=== PATIENT | male | born 2000 | race Caucasian/White ===

== ENCOUNTER 2022-07-30 21:10 | Emergency (ER) | payer OTHER, SELFPAY ==
[2022-07-30 21:17] VITALS: BP 167/93; PULSE 117; RESP 20; TEMP 36.8; O2SAT 99; BMI 23.3
[2022-07-30 22:15] LABS: IDNOW Serial# 6674DD1D; Strep A Nucleic Acid Negative (Negative)
[2022-07-30 22:18] LABS: COVID-19 Test Negative (Negative); IDNOW Serial# 55D5AD1C; IDNOW Serial# 9DB6401D; Influenza A Negative (Negative); Influenza B2 Negative (Negative)
--- NOTE | 2022-07-30 22:22 | ED_ITS ---
HPI - Ear Problem General Chief complaint: Ear Problems Stated complaint: headache,ear ache Time Seen by Provider: 07/30/22 22:21 Source: patient Mode of arrival: ambulatory Limitations: no limitations History of Present Illness HPI Narrative: 21-year-old male presents with left ear pain. States that his left ear was clogged, and use a Q-tip to unclog it, he also reports a headache, and sinus congestion. MD Complaint: ear pain Location: left ear Duration: constant Severity: severe Relieving factors: nothing Exacerbating factors: chewing and palpation Context: recent illness Discharge from ear: no Associated symptoms ear: fever, headache and rhinorrhea Treatment prior to arrival: attempt at ear wax removal Related Data Previous Rx's Medication Instructions Recorded amoxicillin 875 mg-potassium 1 tab PO Q12H 10 days #20 tabs 07/30/22 clavulanate 125 mg tablet loratadine 10 mg tablet 10 mg PO DAILY #30 tabs 07/30/22 Allergies Allergy/AdvReac Type Severity Reaction Status Date / Time No Known Allergies Allergy Verified 07/30/22 21:22 Review of Systems Review of Systems: Constitutional: No Fever, No Chills ENT/Mouth: Positive left Ear Pain, No Hoarseness, No sore throat, positive nasal congestion, positive sinus congestion Eyes: No Eye Pain, No Swelling, No Redness, No Foreign Body Cardiovascular: No Chest Pain, No SOB Respiratory: No Cough, No Dyspnea Gastrointestinal: No Nausea, No Vomiting, No Diarrhea, No abdominal Pain Musculoskeletal: None joint pain, No Myalgias, No Joint Swelling Skin: No Skin lacerations, No rash Neuro: No Weakness, No Numbness, No Dizziness, positive Headache Yes all other systems are reviewed and are negative [facility] Past Medical History Attestation statement: The following information was validated with the patient. Source: old records reviewed Social History Social History Advance Directives: No Physical Exam Vital Signs: Vital Signs: Last Vital Signs Temp 98.2 F 07/30/22 21:17 Pulse 117 H 07/30/22 21:17 Resp 20 07/30/22 21:17 BP 167/93 H 07/30/22 21:17 Pulse Ox 99 07/30/22 21:17 O2 Del Method 07/30/22 21:17 BMI result Body Mass Index 23.3 Appearance: Alert. Oriented X3. Mild distress. Eyes: Pupils equal, round and reactive to light. ENT: Pharynx normal. Left tympanic membrane perforated with diffuse erythema and inflammation, right tympanic membrane intact erythematous and bulging. Positive rhinorrhea. Positive maxillary sinus tenderness. Neck: Normal inspection. Neck supple. No mastoid tenderness. No nuchal rigidity. Full range of motion. CVS: Normal heart rate and rhythm. Pulses normal. Respiratory: No respiratory distress. Breath sounds normal. Abdomen: Soft and nontender. Skin: Skin warm and dry. Normal skin color. Normal skin turgor. Extremities: No lower extremity edema. Gait well-balanced well coordinated. Neuro: No motor deficit. No sensory deficit. Cranial nerves 2-12 intact. Course Course Course Narrative: 21-year-old male presents for left ear pain, and upper respiratory symptoms. Viral panel and strep are negative. Physical exam is indicative of sinusitis and congestion with rhinorrhea and a severe case of otitis media to left side. Right tympanic membrane is intact with erythema and bulging. No nuchal rigidity. No mastoid tenderness. No indication of or pharyngeal edema. 22:30 severe otitis media with suspected perforated tympanic membrane, plan of care is for Augmentin and decongestant to help with sinus congestion. Parent and patient understands that they must follow-up with ENT. I referred to ENT on [facility]. Patient verbalized understanding of and agrees plan of care discharge home. Verbalized understanding of signs symptoms indicating need for emergent intervention. Medications Administered Discontinued Medications Generic Name Dose Route Start Last Admin Trade Name Freq PRN Reason Stop Dose Admin Amoxicillin/Clavulanate Potassium 875 mg 07/30/22 22:36 07/30/22 22:51 Amoxicillin/Potassium Clav 875 Mg Tablet PO 07/30/22 22:37 875 mg ONCE ONE Administration Ibuprofen 600 mg 07/30/22 22:21 07/30/22 22:51 Ibuprofen 600 Mg Tablet PO 07/30/22 22:22 600 mg ONCE ONE Administration Medical Decision Making Differential Diagnosis Differential Diagnoses: The differential diagnosis associated with the presentation includes Otitis media, otitis externa, sinusitis, COVID, influenza, RSV Lab Data [facility] Lab Attestation statement: I reviewed the patient's lab results. Labs: Lab Results 07/30/22 07/30/22 07/30/22 Range/Units 21:48 21:48 21:48 COVID-19 (NEVAEH) Negative (Negative) COVID-19 Clin Com See Note Influenza Type A (IMANI) Negative (Negative) Influenza Type B (IMANI) Negative (Negative) Influenza A & B Note See Note S. pyogenes GrpA IMANI Negative (Negative) External Record Review External record reviewed: Outpatient record Discharge Plan Discharge Clinical Impression: Otitis media, Acute otitis media of left ear with perforated tympanic membrane, Acute viral syndrome Patient Disposition: Home, Self-Care Instructions: Ruptured Eardrum (ED), Ear Infection (ED), Viral Syndrome (ED) Additional Instructions: You were evaluated for your pain. You have a severe case of otitis media with a tympanic membrane perforation. ( severe ear infection with broken ear drum). Take Augmentin 875 mg twice a day for the next 10 days. Alternate Tylenol 650 mg every 6 hours and Motrin 600 mg every 6 hours as needed for pain and fever management. Consider taking these medications 3 hours apart so you have pain and fever management every 3 hours. Write down what time you take these medications to prevent accidental overdose. Last dose of Motrin at 23:00. Next dose of Motrin is due at 05:00. Consider taking Tylenol at 02:00 so you can have pain management every 3 hours. Follow-up with ENT. follow-up with [facility], they are located on [address] [place] [address], [address], in [facility]. Phone number is [phone]. Please call and request an a ppointment for evaluation of severe otitis media with ruptured tympanic membrane. Do not put anything into your ear. Do not swim, or submerging head under water. COVID influenza RSV tests are negative. Your symptoms of congestion are consistent with a viral syndrome. Consider using a decongestant or allergy medication to help relieve sinus pressure. You may consider [id number] loratadine. Drink plenty of fluids. Thank you for choosing this emergency department for evaluation. Please follow-up with primary care physician as needed. Return to the emergency department for any new, concerning, or worsening symptoms. Prescriptions: New amoxicillin-pot clavulanate 875-125 mg tablet 1 tab PO Q12H 10 Days Qty: 20 0RF loratadine 10 mg tablet 10 mg PO DAILY Qty: 30 0RF Stand Alone Forms: Work/School Release Interventions: ED Discharge Assessment Last Done: 07/30/22 22:56 Discharge Date/Time: 07/30/22 22:57
[2022-07-30] MEDS: Amoxicillin/Potassium Clav 875 MG TABLET PO (22:51)
[2022-07-30] MEDS: Ibuprofen 600 MG TABLET PO (22:51)
== END 2022-07-30 22:57 | disposition home or self-care (01) ==
PROVIDERS: Student in an Organized Health Care Education/Training Program; Emergency Provider Emergency Medicine
DX: B34.9 Viral infection, unspecified (principal); H66.92 Otitis media, unspecified, left ear; H72.92 Unspecified perforation of tympanic membrane, left ear; Z20.822 Contact with and (suspected) exposure to COVID-19
CPT/HCPCS: 36415; 87502; 87635; 87651; 99283